=== PATIENT | male | born 1925 | race Caucasian/White ===

== ENCOUNTER 2016-10-21 11:13 | Observation (INO) ==
[2016-10-21] MEDS ORDERED: Aspirin 81 MG TAB.CHEW PO ONE (11:27)
[2016-10-21] MEDS ORDERED: Ipratropium/Albuterol Neb 3 ML IH ONE (11:28)
--- NOTE | 2016-10-21 11:28 | Emergency Department Note ---
Disposition Clinical Impression: Chest pain Qualifiers: Chest pain type: chest pain on breathing Qualified Code(s): R07.1 - Chest pain on breathing Dyspnea Qualifiers: Dyspnea type: unspecified Qualified Code(s): R06.00 - Dyspnea, unspecified Disposition: Admitted As Inpatient Chest Pain HPI - General Chief Complaint: ED Chest Pain Stated Complaint: chest pain// LALITHA Time Seen by Provider: 10/21/16 11:26 Source: patient, family Mode of arrival: ambulatory Limitations: no limitations Vital Signs Reviewed: Yes Nursing Notes Reviewed: Yes - History of Present Illness HPI Narrative: Patient brought in by his son for evaluation of dyspnea. Patient does an assisted care facility. Was seen at [facility] emergency department recently and was given breathing treatments with resolution of dyspnea. Patient was not given outpatient medications. Dyspnea has returned. Is associated with intermittent left-sided sharp chest pain. Chest pain is intermittent and is occasionally worse with deep breaths. Dyspnea is associated with exertion and improved with rest. - Related Data Home Medications Medication Instructions Recorded Confirmed Aspirin 81 mg PO DAILY 10/21/16 10/21/16 Atenolol [Tenormin] 50 mg PO BID 10/21/16 10/21/16 Furosemide [Lasix] 40 mg PO DAILY 10/21/16 10/21/16 Nitroglycerin [Nitrostat] 0.4 mg SL AD PRN 10/21/16 10/21/16 Potassium Chloride [K-Tab ER] 20 meq PO DAILY 10/21/16 10/21/16 Terazosin [Hytrin] 5 mg PO HS 10/21/16 10/21/16 Warfarin [Coumadin] 7.5 mg PO DAILY 10/21/16 10/21/16 metOLazone [Zaroxolyn] 5 mg PO DAILY 10/21/16 10/21/16 Allergies Allergy/AdvReac Type Severity Reaction Status Date / Time No Known Allergies Allergy Verified 10/21/16 11:41 Review of Systems: CONSTITUTIONAL: Fatigue, weakness; No weight loss, fever, chills, HEENT: Eyes: No visual changes. Ears, Nose, Throat: No hearing loss, difficulty talking or unable to swallow. SKIN: No rash or itching. CARDIOVASCULAR: Chest pain RESPIRATORY: Dyspnea GASTROINTESTINAL: No anorexia, nausea, vomiting or diarrhea. No abdominal pain or blood. GENITOURINARY: No burning on urination or hematuria. NEUROLOGICAL: No headache, dizziness, syncope, paralysis, ataxia, numbness or tingling in the extremities. No change in bowel or bladder control. MUSCULOSKELETAL: No muscle pain, back pain, joint pain or stiffness. Physical Exam General appearance: Mild tachypnea; NAD, conversant Eyes: anicteric sclerae, moist conjunctivae; PERRL HENT: Atraumatic; oropharynx clear with moist mucous membranes and no mucosal ulcerations Neck: Normal inspection; Trachea midline; FROM, supple Lungs: Significantly diminished bilaterally CV: Irregularly irregular Abdomen: Soft, non-tender; no rebound or gaurding Extremities: No peripheral edema or extremity lymphadenopathy Skin: Normal temperature; no rash, ulcers or lesions Psych: Appropriate mood and affect Neuro: alert and oriented to person, place and time Course - Reevaluation(s) Reevaluation #1: Patient with only mild symptom improvement with albuterol. After albuterol patient had a period where he felt that he was unable to get a good breath in and became very anxious. Patient's previous medical records and examined and there is mention of some mild COPD with albuterol prescribed approximately a year ago. He does not take any regular medications for any COPD and I do not believe he is undergone any pulmonary function testing for this. Patient also does have a lot of significant stress recently with his being in an extended care facility for the last 2 months. The patient tried to move in with her but is only currently in assisted living and is upset that he does not gets more time with her. Patient himself is not able to relate this as the cause of his dyspnea or chest pain. The patient's last chest pain workup was greater than 10 years ago. Patient was told that he had some revascularization to his heart that did not require stenting. He said that everything has been done here however we do not have any records recent enough to be in our computer. Patient was offered multiple options including admission versus discharge and is very adamant that he gets admitted to further workup of these intermittent chest pains and causes of dyspnea. Patient's overall heart score is greater than 3 and does qualify him - Consultations Consultation #1: Dr. Quinteros accepts for further evaluation regarding chest pain and dyspnea Vital Signs Temperature 98.4 F 10/21/16 11:20 Pulse Rate 100 10/21/16 11:20 Respiratory Rate 24 10/21/16 11:20 Blood Pressure 163/131 10/21/16 11:20 O2 Sat by Pulse Oximetry 99 10/21/16 11:20 Temperature 97.8 F 10/21/16 15:27 Pulse Rate 84 10/21/16 15:27 Respiratory Rate 18 10/21/16 17:56 Blood Pressure 158/104 10/21/16 17:56 O2 Sat by Pulse Oximetry 96 10/21/16 17:56 Oxygen Delivery Oxygen Delivery Nasal Cannula Chest Pain - Medical Records Medical records reviewed: Yes I reviewed the patient's medical records. - Lab Data Lab results reviewed: Yes I reviewed the patient's lab results. Result diagrams: 10/21/16 12:14 10/21/16 12:14 Lab Results 10/21/16 10/21/16 10/21/16 Range/Units 12:14 12:14 12:14 WBC 6.9 (4.3-11.1) K/mcL RBC 4.94 (4.19-5.50) M/mcL Hgb 15.0 (12.9-16.9) g/dL Hct 46.2 (37.5-50.1) % MCV 93.5 (83.0-100.0) fL MCH 30.4 (28.0-33.3) pg MCHC 32.5 (31.6-35.5) g/dL RDW 12.2 (11.5-14.5) % Plt Count 228 (140-400) K/mcL MPV 9.0 L (9.4-12.4) fL Immature Gran % 0.3 (0-4) % Seg Neutrophils % 80.8 % Lymphocytes % 9.4 % Monocytes % 7.3 % Eosinophils % 1.6 % Basophils % 0.6 % Neutrophils # 5.6 (1.6-8.9) K/mcL Lymphocytes # 0.7 (0.6-4.6) K/mcL Monocytes # 0.5 (0.0-1.3) K/mcL Eosinophils # 0.1 (0.0-0.6) K/mcL Basophils # 0.0 (0.0-0.2) K/mcL PT 16.3 H (9.4-12.1) Seconds INR 1.5 D-Dimer 1340 H (0-500) ng/mLFEU Sodium (136-145) mEq/L Potassium (3.5-4.5) mEq/L Chloride (98-109) mEq/L Carbon Dioxide (19-29) mEq/L BUN (8-26) mg/dL Creatinine (0.72-1.25) mg/dL Est GFR ( Amer) (> 60) Est GFR (Non-Af Amer) (> 60) BUN/Creatinine Ratio (6-26) Glucose (70-99) mg/dL Calculated Osmolality (280-300) Calcium (8.6-10.8) mg/dL Troponin I (0-0.03) ng/mL B-Natriuretic Peptide 238 H (0-100) pg/mL 10/21/16 10/21/16 Range/Units 12:14 12:14 WBC (4.3-11.1) K/mcL RBC (4.19-5.50) M/mcL Hgb (12.9-16.9) g/dL Hct (37.5-50.1) % MCV (83.0-100.0) fL MCH (28.0-33.3) pg MCHC (31.6-35.5) g/dL RDW (11.5-14.5) % Plt Count (140-400) K/mcL MPV (9.4-12.4) fL Immature Gran % (0-4) % Seg Neutrophils % % Lymphocytes % % Monocytes % % Eosinophils % % Basophils % % Neutrophils # (1.6-8.9) K/mcL Lymphocytes # (0.6-4.6) K/mcL Monocytes # (0.0-1.3) K/mcL Eosinophils # (0.0-0.6) K/mcL Basophils # (0.0-0.2) K/mcL PT (9.4-12.1) Seconds INR D-Dimer (0-500) ng/mLFEU Sodium 144 (136-145) mEq/L Potassium 3.7 (3.5-4.5) mEq/L Chloride 102 (98-109) mEq/L Carbon Dioxide 33 H (19-29) mEq/L BUN 19 (8-26) mg/dL Creatinine 1.45 H (0.72-1.25) mg/dL Est GFR ( Amer) 56 L (> 60) Est GFR (Non-Af Amer) 46 L (> 60) BUN/Creatinine Ratio 13 (6-26) Glucose 103 H (70-99) mg/dL Calculated Osmolality 301 H (280-300) Calcium 9.6 (8.6-10.8) mg/dL Troponin I 0.01 (0-0.03) ng/mL B-Natriuretic Peptide (0-100) pg/mL - Radiology Data Radiology results reviewed: Yes I reviewed the patient's radiology results. - EKG Data EKG attestation: Yes I reviewed and interpreted this EKG. EKG results narrative: EKG shows atrophic fibrillation with a ventricular rate of 105. No ST elevations or depressions. Unchanged from 06/23/2008.
--- NOTE | 2016-10-21 11:33 | Emergency Department Note ---
START Narrative - START START: I examined this patient and my medical decision-making was reviewed with the RAW MATERIAL PLANNER/PA/Advanced Practice Nurse/Resident Physician. I agree with the documented findings, disposition and treatment plan as described except to the extent set forth below. ED attending note: Patient seen with emergency medicine resident Dr. Anderson. Please see a copy of his note for details of the H&P, evaluation, management and disposition of this patient. We independently had [id number] contact with the patient Briefly: A 89-year-old male with history of A. fib comes in with 2 weeks increasing shortness of breath cough and fatigue. Decreased breath sounds but afebrile good pulse ox. EKG shows atrial fibrillation rate controlled at 105 bpm without ectopy. Patient had a chest x-ray breathing treatment supplemental oxygen and screening labs. Disposition pending.
[2016-10-21 12:26] LABS: Basophils % 0.6 %; Eosinophils # 0.1 K/mcL (0.0-0.6); Eosinophils % 1.6 %; Hematocrit 46.2 % (37.5-50.1); Immature Granulocytes % 0.3 % (0-4); Lymphocytes # 0.7 K/mcL (0.6-4.6); Lymphocytes % 9.4 %; Mean Corpuscular HGB Conc 32.5 g/dL (31.6-35.5); Mean Corpuscular Hemoglobin 30.4 pg (28.0-33.3); Mean Corpuscular Volume 93.5 fL (83.0-100.0); Monocytes # 0.5 K/mcL (0.0-1.3); Monocytes % 7.3 %; Neutrophils # 5.6 K/mcL (1.6-8.9); Platelet Count 228 K/mcL (140-400); Red Blood Count 4.94 M/mcL (4.19-5.50); Red Cell Distribution Width 12.2 % (11.5-14.5); Segmented Neutrophils % 80.8 %
[2016-10-21 12:28] LABS: INR 1.5; Prothrombin Time 16.3 Seconds (9.4-12.1)
[2016-10-21 12:37] LABS: Calcium 9.6 mg/dL (8.6-10.8); Potassium 3.7 mEq/L (3.5-4.5)
[2016-10-21] MEDS ORDERED: 0.9 % Sodium Chloride 500 ML IVC ONE (12:40)
[2016-10-21] MEDS ORDERED: *HR* LORazepam 0.5 MG TABLET PO STA (13:43)
[2016-10-21] MEDS ORDERED: PrednisoLONE Oral Soln 15 MG/5 ML UDC PO STA (13:46)
[2016-10-21] MEDS ORDERED: predniSONE 20 MG TABLET PO ONE (13:53)
[2016-10-21] MEDS ORDERED: Acetaminophen 325 MG TABLET PO PRN (14:57)
[2016-10-21] MEDS ORDERED: Ondansetron 4 MG/2 ML VIAL IVP PRN (14:57)
[2016-10-21] MEDS ORDERED: Naloxone 0.4 MG/ML INJ IVP PRN (14:57)
--- NOTE | 2016-10-21 15:39 | Internal Med Progress Note ---
Date of Encounter: 10/21/16 Time of Encounter: 15:00 - Constitutional Vitals: Temp Pulse Resp BP Pulse Ox 97.8 F 84 20 158/104 91 10/21/16 15:27 10/21/16 15:27 10/21/16 15:27 10/21/16 15:27 10/21/16 15:27 Internal Medicine: Result - Labs CBC & Chem 7: 10/21/16 12:14 10/21/16 12:14 - ABG Interpretation ABG results: PT/INR, D-dimer PT 16.3 Seconds (9.4-12.1) H 10/21/16 12:14 D-Dimer 1340 ng/mLFEU (0-500) H 10/21/16 12:14 Consult Discharge Plan - Plan Referrals: Sarkis Villeda DO [Primary Care Provider] -
--- NOTE | 2016-10-21 15:58 | Internal Med History&Physical ---
Date of Encounter: 10/21/16 Time of Encounter: 15:00 Assessment and Plan (1) Chest pain Current visit: Yes Status: Acute Patient is under a lot of stress because his has Alzheimer and he has to repeat to her the same things every day. He lives in a Assisted living facility and his lives in the [facility] of the same facility. He reports a 2 months history of shortness of breath at rest and exertion with associated left- sided chest pain that lasts 20 secondas, palpitations and mild diaphoresis. This morning the chest pain lasted longer so he came to our ED. No bleeding, no LOC, no LE edema, fever, no chills, nausea, no vomiting, no abdominal pain. In our ED, he was wheezing and very anxious and received duonebs and ativan with mild improvement of his symptoms. Upon questioning, no diagnosis of COPD but he did smoke for over 30 years. He is asymptomatic now. EKG reviewed by me, atrial fibrillation hr 106. bnp 236. CXR reviewed by me and showed no acute process. CTA of chest showed no PE, small bilateral pleural effusion and probably pulmonary hypertension. place patient in observation. differential includes ACS , anxiety, pleural effusion, heart failure, COPD. Continue duonebs, aspirin, metoprolol, home dose furosemide/metolazone. hydraazine prn. check echocardiogram, serial troponins, stress test. Qualifiers: Chest pain type: chest pain on breathing Qualified Code(s): R07.1 - Chest pain on breathing (2) Shortness of breath Current visit: Yes Status: Acute plan as above (3) Atrial fibrillation Current visit: Yes Status: Chronic stop atenolol. continue metoprolol and warfarin. inr not therapeutic at 1.5. Qualifiers: Atrial fibrillation type: chronic Qualified Code(s): I48.2 - Chronic atrial fibrillation Internal Medicine - H&P: HPI Chief complaint: left-sided chest pain and shortness of breath for 2 days Admitted From: Home Plans for Post Hospital Care: Home History of present illness: Mr. De León is a 89 year old male with past medical history of atrial fibrillation on coumadin who is under a lot of stress because his has Alzheimer and he has to repeat to her the same things every day. He lives in a Assisted living facility and his lives in the [facility] of the same facility. He reports a 2 months history of shortness of breath at rest and exertion with associated left-sided chest pain that lasts 20 seconds, palpitations and mild diaphoresis. This morning the chest pain lasted longer so he came to our ED. No bleeding, no LOC, no LE edema, fever, no chills, nausea, no vomiting, no abdominal pain. In our ED, he was wheezing and very anxious and received duonebs and ativan with mild improvement of his symptoms. Upon questioning, no diagnosis of COPD but he did smoke for over 30 years. He is asymptomatic now. Past Med Surg Social Fam HX - Past Medical History Medical history: atrial fibrillation, COPD, GERD, hypertension Psychiatric history: anxiety - Social History Smoking Status: Former smoker Smokeless Tobacco Status: No Alcohol use: none Drug use: none - Family History Mother Hx Family Cardiac Disorders: No Internal Medicine - H&P: Meds Aspirin 81 mg PO DAILY 10/21/16 [History] Atenolol [Tenormin] 50 mg PO BID 10/21/16 [History] Furosemide [Lasix] 40 mg PO DAILY 10/21/16 [History] Nitroglycerin [Nitrostat] 0.4 mg SL AD PRN 10/21/16 [History] Potassium Chloride [K-Tab ER] 20 meq PO DAILY 10/21/16 [History] Terazosin [Hytrin] 5 mg PO HS 10/21/16 [History] Warfarin [Coumadin] 7.5 mg PO DAILY 10/21/16 [History] metOLazone [Zaroxolyn] 5 mg PO DAILY 10/21/16 [History] Allergies No Known Allergies Allergy (Verified 10/21/16 11:41) All Systems PM: A 10-system review of systems was performed and is negative for pertinent findings except as documented above in the HPI. - Constitutional Vitals: Temp Pulse Resp BP Pulse Ox 97.8 F 84 20 158/104 91 10/21/16 15:27 10/21/16 15:27 10/21/16 15:27 10/21/16 15:27 10/21/16 15:27 General appearance: Present: cooperative, A&O X 3, pleasant, no acute distress, answers questions appropriately - Neck Neck exam general surgery: Present: supple, trachea midline. Absent: lymphadenopathy - Respiratory Respiratory exam: Present: decreased breath sounds (mild). Absent: respiratory distress, rhonchi, wheezes - Cardiovascular Cardiovascular exam: Present: irregular rhythm - GI/Abdominal GI/Abdominal exam: Present: normal bowel sounds, soft. Absent: distended, tenderness - Extremities Exam Extremities exam: Absent: pedal edema - Back Exam Back exam: Absent: CVA tenderness (L), CVA tenderness (R) - Neurological Exam Neurological exam: Present: alert, oriented X3, no focal deficits, strengths equal and symetr throughout. Absent: facial droop, speech deficit - Skin Skin exam: Absent: rash Internal Med - H&P Results - Labs CBC & Chem 7: 10/21/16 12:14 10/21/16 12:14
[2016-10-21] MEDS ORDERED: ALPRAZolam 0.25 MG TABLET PO PRN (16:33)
[2016-10-21] MEDS ORDERED: hydrALAZINE 25 MG TABLET PO PRN (16:33)
[2016-10-21] MEDS ORDERED: Warfarin perPT PO PRN (18:00)
[2016-10-21] MEDS ORDERED: *HR* Warfarin 7.5 MG TABLET PO ONE (18:00)
[2016-10-22 03:51] LABS: Basophils % 0.1 %; Hematocrit 40.4 % (37.5-50.1); Immature Granulocytes % 0.4 % (0-4); Lymphocytes # 0.4 K/mcL (0.6-4.6); Lymphocytes % 5.4 %; Mean Corpuscular HGB Conc 31.9 g/dL (31.6-35.5); Mean Corpuscular Hemoglobin 29.6 pg (28.0-33.3); Mean Corpuscular Volume 92.7 fL (83.0-100.0); Mean Platelet Volume 9.4 fL (9.4-12.4); Monocytes # 0.4 K/mcL (0.0-1.3); Monocytes % 5.1 %; Neutrophils # 6.6 K/mcL (1.6-8.9); Platelet Count 220 K/mcL (140-400); Red Blood Count 4.36 M/mcL (4.19-5.50)
[2016-10-22 03:52] LABS: Hemoglobin 12.9 g/dL (12.9-16.9)
[2016-10-22 03:53] LABS: INR 1.5; Prothrombin Time 16.2 Seconds (9.4-12.1)
[2016-10-22 04:01] LABS: Calcium 8.8 mg/dL (8.6-10.8); Magnesium 1.9 mg/dL (1.6-2.6); Phosphorous 2.7 mg/dL (2.3-4.7); Potassium 4.1 mEq/L (3.5-4.5)
[2016-10-22] MEDS: Furosemide 40 MG TABLET PO SCH (09:04)
[2016-10-22] MEDS: Aspirin 81 MG TAB.CHEW PO SCH (09:04)
[2016-10-22] MEDS: metOLazone 5 MG TABLET PO SCH (09:04)
--- NOTE | 2016-10-22 10:00 | Electrocardiograph Report ---
[address] [place] [address] Test Date: 2016-10-21 Pat Name: Donovan De León Department: 105 Room: 3B Gender: M Vice President Sales And Marketing: IZABEL : 1925 Requested By: Joel Anderson Order Number: [id number] Reading MD: Omid Harmon MD Measurements Intervals Slater Rate: 105 P: TN: 0 QRS: 39 QRSD: 80 T: 84 QT: 360 QTc: 421 Interpretive Statements ATRIAL FIBRILLATION WITH RAPID VENTRICULAR RESPONSE Electronically Signed On 10-22-2016 9:58:54 EDT by Omid Harmon MD
[2016-10-22] MEDS ORDERED: Aminoglycoside Consult 1 EACH MC ONE (14:18)
--- NOTE | 2016-10-22 15:06 | Internal Med Progress Note ---
Date of Encounter: 10/22/16 Time of Encounter: 10:30 - Assessment and plan (1) Chest pain Current Visit: Yes Status: Acute Assessment and plan: Patient refuses to discuss chest pain with me. He says he is not having chest pain and does not want to talk about it. Patient lives in assisted living facility and lives across the [place] from him in the [facility] part of the facility. He said that she has dementia and he is under a lot of stress due to constantly having to repeat himself to her. Per admission H&P he reports 2 month history of shortness of breath at rest and exertion along with associated left chest pain lasting approximately 20 seconds, palpitations, and diaphoresis. Patient has audible wheezing, however it is all upper airway. Lungs are clear anteriorly and posteriorly. Patient denies smoking currently. Patient is in A. fib. Chest x-ray was negative. CTA chest showed no PE and bilateral pleural effusion, as well as cardiomegaly. Echocardiogram was done today and showed LVEF 50%, mild systolic function with mild TR and mild HI Not all segments were well visualized will repeat a limited study tomorrow with [facility]. Troponin was negative. patient was unaware that he was nothing by mouth and had caffeinated soda during the night. Stress test will be done tomorrow. Continue toll booth operator for chest pain Monitor labs Repeat echo with [facility] tomorrow Stress test in the morning Monitor vital signs Continue aspirin, beta merary, diuretic and hydralazine when necessary Qualifiers: Chest pain type: chest pain on breathing Qualified Code(s): R07.1 - Chest pain on breathing (2) Shortness of breath Current Visit: Yes Status: Acute Assessment and plan: Per admission H&P, patient reports 2 month history of shortness of breath. At rest in the bed, patient appears to be short of breath, however he is agitated while I am speaking to him. He is not requiring supplemental oxygen and his lungs are clear. I believe the shortness of breath is due in part to agitation and anxiety. Chest x-ray was negative, chest CTA was negative for pulmonary embolism. Oxygen as needed to maintain sats greater than 92%. Continue toll booth operator labs Monitor vital signs with pulse ox (3) Atrial fibrillation Current Visit: Yes Status: Chronic Assessment and plan: Patient in A. fib, apical and radial irregular. Continue metoprolol and warfarin. Monitor INRs. Qualifiers: Atrial fibrillation type: chronic Qualified Code(s): I48.2 - Chronic atrial fibrillation (4) Depression Current Visit: Yes Status: Acute Assessment and plan: In speaking with patient, he says that he wishes he would . He says that he prays for the good Lord to take them every night when he goes to bed. He denies suicidal or homicidal ideations. He has no plan to harm himself or anyone else. He says that he would not ever kill himself or harm himself or anyone else because it is against his jewish. He said when you get his old is he is, there is not much to look forward to. I did speak with psychiatrist for recommendation of potential medication. Due to his age and cardiac history , he is not a good candidate for an antidepressant. It is recommended that he continue to get support from staff and family, increase participation in activities and increase interaction with family and staff. Xanax has been prescribed by the admitting physician when necessary. Continue to monitor patient's condition. Qualifiers: Depression Type: unspecified Qualified Code(s): F32.9 - Major depressive disorder, single episode, unspecified (5) DVT prophylaxis Current Visit: Yes Status: Acute Assessment and plan: Patient is ambulatory. He is on warfarin. Monitor INR. - Time Spent With Patient less than 15 minutes - Constitutional Vitals: Temp Pulse Resp BP Pulse Ox 97.8 F 75 21 145/78 90 10/22/16 11:08 10/22/16 11:08 10/22/16 11:08 10/22/16 11:08 10/22/16 11:08 General appearance: Present: A&O X 3, pleasant, no acute distress, answers questions appropriately - Head Head exam: Present: normal inspection - Eye Eye exam: Present: normal appearance, conjuntiva pink - ENT ENT exam: Present: mucous membranes moist, normal exam - Neck Neck exam general surgery: Present: normal inspection. Absent: lymphadenopathy , tenderness - Respiratory Respiratory exam: Present: decreased breath sounds, CTAB. Absent: chest wall tenderness, rales, rhonchi, stridor, wheezes - Cardiovascular Cardiovascular exam: Present: irregular rhythm. Absent: bradycardia, tachycardia - GI/Abdominal GI/Abdominal exam: Present: normal bowel sounds, soft. Absent: distended, hepatomegaly, mass, tenderness - Extremities Exam Extremities exam: Present: normal inspection, warm. Absent: pedal edema, tenderness - Neurological Exam Neurological exam: Present: no focal deficits. Absent: facial droop, speech deficit - Psychiatric Psychiatric exam: Present: agitated, depressed, flat affect. Absent: homicidal ideation, suicidal ideation Internal Medicine: Result - Labs CBC & Chem 7: 10/22/16 03:30 10/22/16 03:30 Labs: Short CBC 10/22/16 Range/Units 03:30 WBC 7.5 (4.3-11.1) K/mcL Hgb 12.9 D (12.9-16.9) g/dL Hct 40.4 (37.5-50.1) % Plt Count 220 (140-400) K/mcL Neutrophils # 6.6 (1.6-8.9) K/mcL BMP 10/22/16 03:30 Sodium 140 Potassium 4.1 Chloride 105 Carbon Dioxide 27 BUN 20 Creatinine 1.42 H Glucose 117 H Calcium 8.8 Cardiac Enzymes 10/21/16 10/22/16 Range/Units 18:46 03:30 Troponin I 0.01 0.00 (0-0.03) ng/mL - ABG Interpretation ABG results: PT/INR, D-dimer PT 16.2 Seconds (9.4-12.1) H 10/22/16 03:30 D-Dimer 1340 ng/mLFEU (0-500) H 10/21/16 12:14 Consult Discharge Plan - Plan Referrals: Sarkis Villeda DO [Primary Care Provider] -
[2016-10-22] MEDS ORDERED: *HR* Warfarin 7.5 MG TABLET PO ONE (18:00)
[2016-10-22] MEDS ORDERED: Perflutren Lipid Microsphere 1.3 ML in 0.9 % Sodium Chloride 8.7 ML IVP ONE (22:32)
[2016-10-22] MEDS ORDERED: Perflutren Lipid Microsphere 2 ML VIAL ONE (22:35)
[2016-10-23 06:16] LABS: Basophils # 0.1 K/mcL (0.0-0.2); Basophils % 0.7 %; Eosinophils # 0.1 K/mcL (0.0-0.6); Eosinophils % 1.8 %; Hemoglobin 13.7 g/dL (12.9-16.9); Immature Granulocytes % 0.4 % (0-4); Lymphocytes # 1.1 K/mcL (0.6-4.6); Lymphocytes % 16.7 %; Mean Corpuscular HGB Conc 33.4 g/dL (31.6-35.5); Mean Corpuscular Hemoglobin 30.4 pg (28.0-33.3); Mean Corpuscular Volume 90.9 fL (83.0-100.0); Monocytes # 0.6 K/mcL (0.0-1.3); Monocytes % 8.9 %; Neutrophils # 4.9 K/mcL (1.6-8.9); Platelet Count 208 K/mcL (140-400); Red Blood Count 4.51 M/mcL (4.19-5.50); Red Cell Distribution Width 12.2 % (11.5-14.5); Segmented Neutrophils % 71.5 %
[2016-10-23 06:21] LABS: INR 2.2
[2016-10-23 06:24] LABS: Prothrombin Time 24.5 Seconds (9.4-12.1)
[2016-10-23] MEDS ORDERED: Regadenoson 0.4 MG/5 ML SYRINGE IVP ONE (06:33)
[2016-10-23 06:34] LABS: Calcium 9.1 mg/dL (8.6-10.8); Potassium 3.5 mEq/L (3.5-4.5)
[2016-10-23] MEDS: Furosemide 40 MG TABLET PO SCH (09:18)
[2016-10-23] MEDS: Aspirin 81 MG TAB.CHEW PO SCH (09:18)
[2016-10-23] MEDS: metOLazone 5 MG TABLET PO SCH (09:18)
[2016-10-23 11:12] VITALS: BP 157/91
--- NOTE | 2016-10-23 11:42 | Nuclear Medicine Stress Report ---
Regadenoson Nuclear Stress Name: Donovan De León Date of Study: 10/23/2016 Date: 1925 Ht: 70.0 in Medical Record#: [id number] Age: 89 Wt: 203.0 lb Gender: Male Order #: [id number] Location: [facility] Room: [facility] Supervising Provider: Juan Quinones CNP Reading Physician: Lucien Urena MD, [facility] Ordering Physician: Sadie Diana CNP Primary Care Physician: Sarkis Villeda DO Stress Technologist: Terrell Cordova, [employer], [facility] Zig Zag Stitcher: Srinivas Harris Indications: Shortness of breath Impression: Atrial fibrillation was present throughout the study. Occasional to frequent PVCs noted. Gated LVEF = 45%. There is small, mild intensity, reversible perfusion defect in the basal-mid inferior wall. Findings are consistent with mild reversible ischemia involving the basal-mid inferior wall. Abnormal results were communicated to the ordering provider via [employer] message. History: Hypertension Hypercholesteremia Stress Test Summary: Stress Test Type: Pharmacologic Regadenoson 0.4mg/5ml given IV Baseline Information: Initial Heart Rate: 84 Blood Pressure: 168/88 Stress Information: Test Terminated Due to (primary): As per protocol Maximum Blood Pressure: 140/68 Maximum Heart Rate: 101 Percent Maximum Heart Rate Achieved: 77 Double Product: [id number] Symptoms: Shortness of breath Nuclear Summary: SPECT myocardial perfusion imaging using Tc99m Sestamibi given intravenously was performed at rest and following cardiac stress testing. The resting images were obtained following initial dose of 10.7 mCi. Following stress an additional dose of 33.3 mCi was given at peak exercise or 30 seconds post regadenoson infusion. Findings: Stress Note * Resting ECG demonstrated atrial fibrillation with occasional PVCs. * Atrial fibrillation was present throughout the study. Occasional to frequent PVCs noted. * Patient had no chest pain during stress. * No significant ECG changes with regadenoson. Hemodynamic responses * Normal hemodynamic responses to pharmacologic stress. Study Quality * Study quality is average. Gated EF % * Gated LVEF = 45%. Left Ventricle * The left ventricle is not dilated. * There is small, mild intensity, reversible perfusion defect in the basal-mid inferior wall. * Findings are consistent with mild reversible ischemia involving the basal-mid inferior wall. * All other segmental perfusion normal in rest and stress. TID * No evidence of transient ischemic dilatation. Updated by Lucien Urena MD, FACC on 10/23/2016 11:36:41 AM electronically signed on 10/23/2016 11:37:25 AM with status of Final
--- NOTE | 2016-10-23 13:17 | Discharge Summary ---
Date of Encounter: 10/23/16 Time of Encounter: 12:45 - Discharge Diagnosis (1) Chest pain Priority: Primary Status: Resolved Qualifiers: Chest pain type: chest pain on breathing Qualified Code(s): R07.1 - Chest pain on breathing (2) Abnormal stress test Priority: Primary Status: Acute Comments: Patient with a mildly abnormal stress test. He was given the option of a cardiology consult but he declined. He stated he would rather follow-up with his primary care provider and then discuss his options with his primary care provider. Asymptomatic on day of discharge. (3) Other social stressor Priority: Primary Status: Acute Comments: Acute on chronic. The patient's reportedly has advanced Alzheimer's and he was concerned on day of discharge and she was "actively dying." He stated he needed to be with his and stated he would follow up with the desk maker and his primary care provider outpatient. (4) Atrial fibrillation Priority: Secondary Status: Chronic Comments: Rate controlled. Not on anticoagulation therapy. Qualifiers: Atrial fibrillation type: chronic Qualified Code(s): I48.2 - Chronic atrial fibrillation (5) Dyspnea Priority: Primary Status: Acute Comments: Unclear causation. Patient does have a lengthy smoking history with no formal diagnosis of COPD. On day of discharge, a prescription to auscultation bilaterally. Chest x-ray negative. Chest CTA negative. Echocardiogram unremarkable with ejection fraction of 50%. Patient euvolemic on examination. Patient did have an abnormal stress test which may be contributing to his dyspnea on exertion, ejection fraction 45% on stress test. Patient stating his dyspnea on exertion had improved on day of discharge, follow-up outpatient. Qualifiers: Dyspnea type: unspecified Qualified Code(s): R06.00 - Dyspnea, unspecified (6) DVT prophylaxis Priority: Primary Status: Acute Comments: Subcutaneous heparin while admitted (7) Depression Priority: Primary Status: Acute Comments: Acute on chronic. Patient stating that he prays every night for the Lord to take his life. He states that he is not suicidal and states that killing himself would be against his amish. Qualifiers: Depression Type: unspecified Qualified Code(s): F32.9 - Major depressive disorder, single episode, unspecified (8) CKD (chronic kidney disease) stage 3, GFR 30-59 ml/min Priority: Secondary Status: Chronic - Discharge Medications Prescriptions: ALPRAZolam [Xanax 0.25 MG Tablet] 0.25 mg PO BID PRN #10 tablet PRN Reason: Anxiety Home Medications: Aspirin 81 mg PO DAILY 10/21/16 [History] Atenolol [Tenormin] 50 mg PO BID 10/21/16 [History] Furosemide [Lasix] 40 mg PO DAILY 10/21/16 [History] Nitroglycerin [Nitrostat] 0.4 mg SL AD PRN 10/21/16 [History] Potassium Chloride [K-Tab ER] 20 meq PO DAILY 10/21/16 [History] Terazosin [Hytrin] 5 mg PO HS 10/21/16 [History] Warfarin [Coumadin] 7.5 mg PO DAILY 10/21/16 [History] metOLazone [Zaroxolyn] 5 mg PO DAILY 10/21/16 [History] ALPRAZolam [Xanax 0.25 MG Tablet] 0.25 mg PO BID PRN #10 tablet 10/23/16 [Rx] Allergies/Adverse Reactions: Allergies No Known Allergies Allergy (Verified 10/21/16 11:41) Procedures/tests Complete & Pending: Procedures Performed prior 72 hours Category Date Time Status NM vick perf SPECT multi [NM] Routine Exams 10/21/16 16:35 Taken EV echocardiogram Routine Y 10/22/16 16:36 Completed EV limited echo w enhance Routine Y 10/22/16 15:18 Completed SP pharm nuclear stress Routine Y 10/23/16 07:00 Completed Date of admission: 10/21/16 14:13 Primary care physician: Sarkis Stephen, Discharging clinician: Marilin Bonner Anticipated date of discharge: 10/23/16 (declining cardiology consult or interventions) - Patient Status Disposition: Home, Self-Care Condition: Fair Functional capacity at discharge: independent ambulation Overall status at discharge: patient is back to baseline - Discharge Instructions Follow Up With: Sarkis Stephen DO [Primary Care Provider] - Additional Instructions: Follow-up with primary care provider within one to 2 weeks - Diet and Activity Activity: increase activity as tolerated Diet: low salt diet Hospital course: Mr. De León is a 89 year old male with past medical history of atrial fibrillation on Coumadin, former heavy tobacco abuse without official diagnosis of COPD, GERD, hypertension. Patient stating he is under increased stress because his has Alzheimer's and he has to repeat the same things every day. He lives in an assisted living facility and his lives in the long-term of the same facility. Patient presented to the emergency department chief complaint two-month history of increasing shortness of breath at rest and with exertion associated with left-sided chest pain. Patient saying the chest pain lasted 20 seconds and was associated with palpitations, and mild diaphoresis. Patient stating on the morning of presentation, he had chest pain that lasted longer so he presented to the emergency department. Patient was noted to be quite anxious in the emergency department and was also noted to be wheezing. He was given Ativan and duo nebs and admitted to the hospitalist service for further evaluation and management. Chest x-ray negative for acute processes. Chest CTA negative for PE. Patient had a nuclear stress test that was mildly abnormal and revealed an ejection fraction of 45%. Patient denied chest pain throughout this admission. He was offered a consultation to cardiology for his abnormal stress test but the patient stated that he had to leave immediately. He stated he felt as if his was actively passing away and stated that he needed to be with her. He was aware of the risks versus benefits of leaving without cardiology consult and stated he would follow up with his primary care provider Dr. stephen and obtain a cardiology consultation at that time if indicated. Patient also stated during this admission. He prays every night for the Lord to take his life. He denies suicidal or homicidal ideations. He stated that he just wants to but stated he would never kill himself because it was against his amish. He seemed very stressed out with his given her advanced dementia. He was started on Xanax as needed. He responded well to the Ativan in the emergency department. He was discharged back to assisted living in stable condition with close outpatient follow-up highly recommended. ITS Impressions Chest X-Ray 10/21/16 11:27 IMPRESSION: 1. Stable mild enlargement of the cardiac silhouette. No superimposed acute finding to account for patient's shortness of breath. D/ / Franky Lao MD / Franky Lao MD Interpreting Provider: Franky Lao MD Chest CTA 10/21/16 12:37 IMPRESSION: 1. No evidence of pulmonary embolism 2. 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 Occasional to frequent PVCs noted. Gated LVEF equals 45% . There is a small, mild intensity, reversible perfusion defect in the basal- mid inferior wall. Findings are consistent with mild reversible ischemia involving the basal-mid inferior wall. Limited echo with imaging enhancement agent impressions: Low-normal LV systolic function, LVEF 50%. Mild concentric left ventricular hypertrophy. Normal right ventricular size and function. Moderately dilated left atrium. Valvular function was not assessed on this limited study. - Time Spent with Patient Total time spent providing and/or coordinating discharge services: - Constitutional Vitals: Temp Pulse Resp BP Pulse Ox 97.4 F L 67 17 157/91 95 10/23/16 11:05 10/23/16 11:05 10/23/16 11:05 10/23/16 11:05 10/23/16 11:05 General appearance: Present: A&O X 3, pleasant, no acute distress, answers questions appropriately - Head Head exam: Present: atraumatic, normocephalic - Eye Eye exam: Present: PERRL, conjuntiva pink, sclera anicteric Pupils: Present: PERRL - Neck Neck exam general surgery: Present: supple, trachea midline. Absent: lymphadenopathy - Respiratory Respiratory exam: Present: CTAB. Absent: accessory muscle use, decreased breath sounds, rales, respiratory distress, rhonchi, wheezes - Cardiovascular Cardiovascular exam: Present: irregular rhythm, RRR, +S1, +S2. Absent: diastolic murmur, gallop, rubs, systolic murmur - GI/Abdominal GI/Abdominal exam: Present: normal bowel sounds, soft, no peritoneal signs. Absent: distended, tenderness - Extremities Exam Extremities exam: Present: warm, radial pulses palpable and symetrical. Absent : calf tenderness, cyanotic, pedal edema - Neurological Exam Neurological exam: Present: alert, CN II-XII intact, normal gait, oriented X3, no focal deficits, strengths equal and symetr throughout. Absent: pronater drift, facial droop, speech deficit - Psychiatric Psychiatric exam: Present: anxious. Absent: suicidal ideation - Expanded Psychiatric Exam Focused psych exam: Present: restlessness - Skin Skin exam: Present: dry, intact, normal color, warm
== END 2016-10-23 14:19 | disposition home or self-care (01) ==
LOC: 3BNU 11:13 → EMEROO 11:13 → SUATTDRO 14:13 → 3BNU 15:00
PROVIDERS: ADMIT Internal Medicine; ATTEND Nurse Practitioner Family